=== PATIENT | male | born 1955 | race Caucasian/White ===

== ENCOUNTER → 2018-10-16 | Outpatient (CLI) | payer OTHER ==
--- NOTE | 2018-10-16 19:50 | Diagnostic Imaging Report ---
PROCEDURE: US Hepatic (Liver). TECHNIQUE: Multiple real-time grayscale images were obtained over the right upper quadrant in various projections. INDICATION: Elevated liver function test. COMPARISON: There are no prior studies available for comparison. FINDINGS: The liver does not appear to be enlarged. There is no focal mass involving the liver and the biliary tree is not dilated. Spectral color-flow imaging of the portal vein shows the vein is patent. There is normal direction of flow within the vein. The liver is somewhat more echogenic than usually seen. This does suggest fatty metamorphosis. Within the right kidney, there is a 3.7 x 5.5 cm hypoechoic mass. This has the appearance of a renal neoplasm. CT would be recommended for further evaluation. The right kidney is otherwise unremarkable. There is no evidence for cholelithiasis or acute cholecystitis and the common bile duct is not dilated. The pancreas and the proximal area were obscured by bowel gas. IMPRESSION: 1. There is no evidence for an acute abnormality of the liver and there is no sign of a hepatic mass. The echogenic appearance of the liver does suggest fatty metamorphosis, however. 2. There does appear to be a solid mass within the mid portion of the right kidney. This finding is worrisome for neoplasm. CT would be recommended for further evaluation. 3. There is no acute abnormality of the right upper quadrant noted otherwise. Dictated by: Dictated on workstation # [id number]
== END ==
LOC: RAD 08:25
PROVIDERS: ATTEND Nurse Practitioner Family
DX: R79.89 Other specified abnormal findings of blood chemistry (principal); R74.8 Abnormal levels of other serum enzymes
CPT/HCPCS: 76705

== ENCOUNTER → 2018-10-19 | Outpatient (CLI) | payer SELFPAY ==
[~2018-10-19] MED LIST: CATHETER FLUSH 10 ML SYR IV PRN; HOLD METFORMIN - RECEIVED CONTRAST 20 ML VIAL IV SCH; IOHEXOL 350 MG/ML 100 ML (OMNIPAQUE 350) VIAL IV ONE; NS 100 ML (IVPB) BAG IV ONE
--- NOTE | 2018-10-19 19:48 | Diagnostic Imaging Report ---
PROCEDURE: CT abdomen and pelvis with contrast. TECHNIQUE: Multiple contiguous axial images were obtained through the abdomen and pelvis after administration of intravenous contrast. Auto Exposure Controls were utilized during the CT exam to meet ALARA standards for radiation dose reduction. INDICATION: Mass in the right kidney. FINDINGS: Heterogeneously enhancing solid vascularized right renal mass measured 6.4 x 4.2 cm and is most conspicuous at its middle one third where there is cortical involvement as well as extension into the hilar sinus fat. This is suspicious for malignancy. The contralateral left kidney is normal in size, cortical thickness, and shows normal excretion of contrast media with no evidence for left renal mass. The renal veins and cava are patent bilaterally as are the renal arteries. The adrenals are negative. There is no perinephric or retroperitoneal lymphadenopathy. No mesenteric mass. The liver, spleen, gallbladder, bile ducts, and pancreas appear normal. There is no ascites, abscess, hematoma, or fluid collection. Prostate, seminal vesicles, and urinary bladder appear unremarkable. No suspicious lytic or sclerotic bone lesion. The lung bases are negative. IMPRESSION: 1. Solid vascularized right renal mass; carcinoma suspected. 2. However, no CT findings to suggest regional or distant metastases. Dictated by: Dictated on workstation # [id number]
== END ==
LOC: RAD 13:20
PROVIDERS: ATTEND Nurse Practitioner Family
DX: N28.89 Other specified disorders of kidney and ureter (principal)
CPT/HCPCS: 74177

== ENCOUNTER → 2018-11-05 | Outpatient (CLI) | payer OTHER ==
[~2018-11-05] VITALS: Ht 182.9 cm; Wt 99.8 kg
[~2018-11-05] MED LIST changes: -HOLD METFORMIN - RECEIVED CONTRAST 20 ML VIAL IV SCH; -IOHEXOL 350 MG/ML 100 ML (OMNIPAQUE 350) VIAL IV ONE; -NS 100 ML (IVPB) BAG IV ONE; +REGADENOSON 0.4 MG/5 ML SYR (LEXISCAN) IV ONE
== END ==
LOC: CARD 06:48
PROVIDERS: ATTEND Internal Medicine Cardiovascular Disease
DX: I25.10 Atherosclerotic heart disease of native coronary artery without angina pectoris (principal); I10 Essential (primary) hypertension; R06.02 Shortness of breath; R53.81 Other malaise; I08.1 Rheumatic disorders of both mitral and tricuspid valves
CPT/HCPCS: 93306

== ENCOUNTER → 2018-11-15 | Outpatient (CLI) | payer OTHER ==
[~2018-11-15] MED LIST changes: -CATHETER FLUSH 10 ML SYR IV PRN; +HOLD METFORMIN - RECEIVED CONTRAST 20 ML VIAL IV SCH; +IOHEXOL 350 MG/ML 100 ML (OMNIPAQUE 350) VIAL IV ONE; +NS 100 ML (IVPB) BAG IV ONE; -REGADENOSON 0.4 MG/5 ML SYR (LEXISCAN) IV ONE
--- NOTE | 2018-11-15 09:40 | Diagnostic Imaging Report ---
PROCEDURE: CT chest with contrast only. TECHNIQUE: Multiple contiguous axial images were obtained through the chest after administration of intravenous contrast. Auto Exposure Controls were utilized during the CT exam to meet ALARA standards for radiation dose reduction. INDICATION: Renal mass. COMPARISON: No prior CT chest studies are available for comparison. FINDINGS: No axillary lymphadenopathy is detected. No mediastinal or hilar lymphadenopathy is detected. No pericardial or pleural fluid is identified. Pulmonary parenchymal evaluation demonstrates central airways to be patent. Lungs are clear. No infiltrates, nodules or masses are seen. No osteoblastic or osteolytic lesions are seen. The abdomen again demonstrates a solid mass in the right kidney. IMPRESSION: 1. No evidence of thoracic lymphadenopathy or pulmonary metastatic disease. 2. Right renal mass. Dictated by: Dictated on workstation # [id number]
== END ==
LOC: RAD 08:28
PROVIDERS: ATTEND Nurse Practitioner Family
DX: N28.89 Other specified disorders of kidney and ureter (principal)
CPT/HCPCS: 71260

== ENCOUNTER → 2018-11-15 | Outpatient (CLI) | payer OTHER ==
[2018-11-15 14:21] VITALS: BP 148/96
--- NOTE | 2018-11-15 14:21 | Cardiology Stress Test Report ---
Stress Test Report Date of Procedure/Referring: Date of Procedure: Nov 15, 2018 PCP Imelda Villalobos MD Admitting Physician Center/[facility] Indications: shortness of breath, CAD, hypertension. Baseline Heart Rate: 68 Baseline Blood Pressure: Blood Pressure Systolic: 148 Blood Pressure Diastolic: 96 Baseline EKG: Baseline EKG: Sinus rhythm with occasional PVCs. Summary/Conclusion: Summary: In summary, the patient started exercising with a baseline heart rate, blood pressure and EKG mentioned above Patient was able to exercise for a total of 12 minutes on Mani protocol, 12.3 METs Maximum heart rate 159 BPM which is 99 percent of maximum predicted heart rate response. Maximum blood pressure 188/91 mmHg Stress EKG diagnostic ST depressions noted in inferior leads. ST elevation noted in lead aVR. Recovery EKG Return to baseline Conclusion: 1. excellent functional capacity. 2. abnormal exercise stress test, with ST depressions. No chest pain. nuclear stress test or coronary angiography is recommended. 3. No arrhythmia was noted Imelda VILLALOBOS MD Nov 15, 2018 14:21
== END ==
LOC: CARD 08:26
PROVIDERS: ATTEND Internal Medicine Interventional Cardiology
DX: I25.10 Atherosclerotic heart disease of native coronary artery without angina pectoris (principal); I10 Essential (primary) hypertension
CPT/HCPCS: 93017

== ENCOUNTER 2018-11-22 08:40 | Day surgery (SDC) | payer OTHER ==
[~2018-11-22] VITALS: Ht 182.9 cm; Wt 102.5 kg
[2018-11-22] VITALS (7 sets, daily range): BP systolic 124–144; BP diastolic 72–94
--- OUTSIDE RECORDS SUMMARY | 2018-11-22 08:45 | XMS REPORT ---
Author Author RIZWAN LYNN [facility] Address [address] [place] [address] Care Team Providers Care Linux Devops Engineer Name Role Phone RIZWAN LYNN Unavailable PROBLEMS Type Condition ICD9-CM Code [id number] Code Onset Dates Condition Status SNOMED Code Problem Hyperlipidemia LDL goal <100 E78.5 Active 89804653 Problem Essential hypertension I10 Active 80584609 ALLERGIES No Known Allergies ENCOUNTERS Encounter Location Date Diagnosis [facility] [address] [id number] [id number] September, Essential hypertension I10 and Hyperlipidemia LDL goal <100 E78.5 [facility] [address] [id number][place] [id number] Jan, Essential hypertension I10 and Hyperlipidemia LDL goal <100 E78.5 [facility] [address] [id number] [place] [id number] Dec, [facility] [address] [id number], [place] [id number] Oct, Essential hypertension I10 [facility] [address] [id number][place] [id number] Oct, Essential hypertension I10 [facility] [address] [id number][place] [id number] September, Essential hypertension I10 [facility] [address] [id number][place] [phone] September, IMMUNIZATIONS No Known Immunizations SOCIAL HISTORY Never Assessed REASON FOR VISIT CHM- 6 month f/u BP Candy DELGADO PLAN OF CARE Activity Details Follow Up 6 Months Reason:b/p VITAL SIGNS Height 73 in 2017-09-14 Weight 224.1 lbs 2017-09-14 Temperature 97.1 degrees Fahrenheit 2017-09-14 Heart Rate 68 bpm 2017-09-14 Respiratory Rate 16 2017-09-14 BMI 29.56 kg/m2 2017-09-14 Blood pressure systolic 132 mmHg 2017-09-14 Blood pressure diastolic 90 mmHg 2017-09-14 MEDICATIONS Medication Instructions Dosage Frequency Start Date End Date Duration Status Atorvastatin Calcium 10 mg Orally Once a day 1 tablet 24h Oct, Not-Taking Hydrochlorothiazide 25MG Orally Once a day 1 tablet in the morning 24h Active Aspirin 81 81 MG Orally Once a day 1 tablet 24h Active Metoprolol Tartrate 25MG Orally Twice a day 1 tablet with food 12h Active RESULTS No Results PROCEDURES Procedure Date Ordered Result Body Site ROUTINE VENIPUNCTURE 2017-09-14 N/A ASSAY OF FREE THYROXINE September 14, 2017 ASSAY THYROID STIM HORMONE September 14, 2017 COMPLETE CBC W/AUTO DIFF WBC September 14, 2017 COMPREHEN METABOLIC PANEL September 14, 2017 INSTRUCTIONS MEDICATIONS ADMINISTERED No Known Medications MEDICAL (GENERAL) HISTORY Type Description Date Medical History hypertension Medical History -2015 Surgical History cardiac stent x2 08/2015 Surgical History vasectomy Hospitalization History Surgery(s) only
--- OUTSIDE RECORDS SUMMARY | 2018-11-22 08:45 | XMS REPORT ---
Author Author RIZWAN LYNN [facility] Address [address] [place] [address] Care Team Providers Care Pin Game Machine Inspector Name Role Phone RIZWAN LYNN Unavailable PROBLEMS Type Condition ICD9-CM Code APQ93-PH Code Onset Dates Condition Status SNOMED Code Problem Hyperlipidemia LDL goal <100 E78.5 Active 29234942 Problem Essential hypertension I10 Active 33589378 ALLERGIES No Information SOCIAL HISTORY Never Assessed PLAN OF CARE VITAL SIGNS MEDICATIONS Medication Instructions Dosage Frequency Start Date End Date Duration Status Atorvastatin Calcium 10 mg Orally Once a day 1 tablet 24h Oct, Active RESULTS No Results PROCEDURES No Known procedures IMMUNIZATIONS No Known Immunizations MEDICAL (GENERAL) HISTORY Type Description Date Medical History hypertension Medical History [place]-2016 Surgical History cardiac stent x2 08/2015 Surgical History vasectomy Hospitalization History Surgery(s) only
--- OUTSIDE RECORDS SUMMARY | 2018-11-22 08:45 | XMS REPORT ---
Author Author RIZWAN LYNN [facility] Address [address] [place] [address] Care Team Providers Care Regional Ehs Manager Name Role Phone RIZWAN LYNN Unavailable PROBLEMS Type Condition ICD9-CM Code [id number] Code Onset Dates Condition Status SNOMED Code Problem Hyperlipidemia LDL goal <100 E78.5 Active 63590164 Problem Hyperlipidemia LDL goal <70 E78.5 Active 75410127 Problem Essential hypertension I10 Active 37207433 ALLERGIES No Information ENCOUNTERS Encounter Location Date Diagnosis [facility] [address] [id number][place] [id number] Jul, [facility] [address] [id number], [place] [phone] Jul, Essential hypertension I10 [facility] [address] [id number] [id number] Jul, [facility] [address] [id number][place] [id number] Jul, Essential hypertension I10 ; Dizziness R42 and Bilateral otitis media with effusion H65.93 [facility] [address] [id number], [place] [id number] Jul, Essential hypertension I10 and Hyperlipidemia LDL goal <70 E78.5 [facility] [address] [id number], [place] [id number] Jul, Bronchitis, acute J20.9 and Hyperlipidemia LDL goal <70 E78.5 [facility] [address] [id number], [place] [id number] September, Essential hypertension I10 and Hyperlipidemia LDL goal <100 E78.5 [facility] [address] [id number], [place] [id number] Jan, Essential hypertension I10 and Hyperlipidemia LDL goal <[address] [id number] [place] [phone] Dec, [address] [id number] [place] [phone] Oct, Essential hypertension I[address] [id number] [place] [phone] Oct, Essential hypertension I10 [address] [facility] [address] [id number] [place] [id number] September, Essential hypertension I10 [address] [facility] [address] [id number] [place] [phone] September, IMMUNIZATIONS No Known Immunizations SOCIAL HISTORY Never Assessed REASON FOR VISIT labs Braulio RUBACLAVA PLAN OF CARE Activity Details Follow Up prn Reason: VITAL SIGNS MEDICATIONS Unknown Medications RESULTS No Results PROCEDURES Procedure Date Ordered Result Body Site VENIPUNCT, ROUTINE* July 11, 2018 LIPID PANEL July 11, 2018 COMPLETE CBC W/AUTO DIFF WBC July 11, 2018 COMPREHEN METABOLIC PANEL July 11, 2018 ASSAY OF FREE THYROXINE July 11, 2018 ASSAY THYROID STIM HORMONE July 11, 2018 INSTRUCTIONS MEDICATIONS ADMINISTERED No Known Medications MEDICAL (GENERAL) HISTORY Type Description Date Medical History hypertension Medical History [place]-2016 Medical History hyperlipidemia Surgical History cardiac stent x2 08/2015 Surgical History vasectomy Hospitalization History Surgery(s) only
--- OUTSIDE RECORDS SUMMARY | 2018-11-22 08:45 | XMS REPORT ---
Author Author RIZWAN LYNN [facility] Address [address] [place] [address] Care Team Providers Care Dental Intern Name Role Phone RIZWAN LYNN Unavailable PROBLEMS Type Condition ICD9-CM Code [id number] Code Onset Dates Condition Status SNOMED Code Problem Hyperlipidemia LDL goal <100 E78.5 Active 70503712 Problem Essential hypertension I10 Active 59711448 ALLERGIES No Information ENCOUNTERS Encounter Location Date [facility] [address] [id number][place] [id number] September, [facility] [address] [facility] [address] [id number], [place] [phone] Jan, Essential hypertension I10 and Hyperlipidemia LDL goal <100 E78.5 [facility] [id number] [facility] [address] [id number], [place] [id number] Dec, [facility] [address] [facility] [address] [id number], [place] [id number] Oct, Essential hypertension I10 [facility] [address] [facility] [address] [id number], [place] [phone] Oct, Essential hypertension I10 [facility] [address] [facility] [address] [id number], [place] [phone] September, Essential hypertension I10 [facility] [address] [address] [id number], [place] [phone] September, IMMUNIZATIONS No Known Immunizations SOCIAL HISTORY Never Assessed REASON FOR VISIT refill PLAN OF CARE VITAL SIGNS MEDICATIONS Medication Instructions Dosage Frequency Start Date End Date Duration Status Metoprolol Tartrate 25 MG Orally Twice a day 1 tablet with food 12h 90 days Active Hydrochlorothiazide 25 MG Orally Once a day 1 tablet in the morning 24h 90 days Active RESULTS No Results PROCEDURES No Known procedures INSTRUCTIONS MEDICATIONS ADMINISTERED No Known Medications MEDICAL (GENERAL) HISTORY Type Description Date Medical History hypertension Medical History [place]-2015 Surgical History cardiac stent x2 08/2015 Surgical History vasectomy Hospitalization History Surgery(s) only
--- OUTSIDE RECORDS SUMMARY | 2018-11-22 08:45 | XMS REPORT ---
Author Author SHANE RIZWAN [facility] Address [address] [place] [address] Care Team Providers Care Wind Tunnel Mechanic Name Role Phone RIZWAN LYNN Unavailable PROBLEMS Type Condition ICD9-CM Code [id number] Code Onset Dates Condition Status SNOMED Code Problem Hyperlipidemia LDL goal <100 E78.5 Active 75397241 Problem Essential hypertension I10 Active 13810807 ALLERGIES No Information SOCIAL HISTORY Never Assessed PLAN OF CARE VITAL SIGNS MEDICATIONS No Known Medications RESULTS Name Result Date Reference Range TSH W/ FREE T4 2016-10-06 TSH 2.150 0.450-4.500 T4,Free(Direct) 1.02 0.82-1.77 CBC 2016-10-06 WBC 5.4 3.4-10.8 RBC 4.84 4.14-5.80 Hemoglobin 15.1 12.6-17.7 Hematocrit 44.4 37.5-51.0 MCV 92 79-97 MCH 31.2 26.6-33.0 MCHC 34.0 31.5-35.7 RDW 13.4 12.3-15.4 Platelets 149 150-379 Neutrophils 59 Lymphs 26 Monocytes 12 Eos 3 Basos 0 Immature Cells Neutrophils (Absolute) 3.2 1.4-7.0 Lymphs (Absolute) 1.4 0.7-3.1 Monocytes(Absolute) 0.6 0.1-0.9 Eos (Absolute) 0.1 0.0-0.4 Baso (Absolute) 0.0 0.0-0.2 Immature Granulocytes 0 Immature Grans (Abs) 0.0 0.0-0.1 NRBC Hematology Comments: LIPID PANEL 2016-10-06 Cholesterol, Total 236 100-199 Triglycerides 191 0-149 HDL Cholesterol 43 >39 VLDL Cholesterol Jacob 38 5-40 LDL Cholesterol Calc 155 0-99 Comment: CMP 2016-10-06 Glucose, Serum 88 65-99 BUN 12 6-24 Creatinine, Serum 1.14 0.76-1.27 eGFR If NonAfricn Am 70 >59 eGFR If Africn Am 81 >59 BUN/Creatinine Ratio 11 9-20 Sodium, Serum 141 134-144 Potassium, Serum 3.7 3.5-5.2 Chloride, Serum 98 96-106 Carbon Dioxide, Total 23 18-29 Calcium, Serum 9.1 8.7-10.2 Protein, Total, Serum 7.0 6.0-8.5 Albumin, Serum 4.2 3.5-5.5 Globulin, Total 2.8 1.5-4.5 A/G Ratio 1.5 1.2-2.2 Bilirubin, Total 0.6 0.0-1.2 Alkaline Phosphatase, S 100 39-117 AST (SGOT) 25 0-40 ALT (SGPT) 21 0-44 PROCEDURES Procedure Date Ordered Result Body Site ROUTINE VENIPUNCTURE 2016-10-06 N/A ASSAY THYROID STIM HORMONE October 06, 2016 COMPLETE CBC W/AUTO DIFF WBC October 06, 2016 ASSAY OF FREE THYROXINE October 06, 2016 COMPREHEN METABOLIC PANEL October 06, 2016 LIPID PANEL October 06, 2016 IMMUNIZATIONS No Known Immunizations MEDICAL (GENERAL) HISTORY Type Description Date Medical History hypertension Medical History -2015 Surgical History cardiac stent x2 08/2015 Surgical History vasectomy Hospitalization History Surgery(s) only
--- OUTSIDE RECORDS SUMMARY | 2018-11-22 08:45 | XMS REPORT ---
Author Author RIZWAN LYNN [facility] Address [address] [place] [address] Care Team Providers Care Shoe Clerk Name Role Phone RIZWAN LYNN Unavailable PROBLEMS Type Condition ICD9-CM Code [id number] Code Onset Dates Condition Status SNOMED Code Problem Hyperlipidemia LDL goal <100 E78.5 Active 06450948 Problem Essential hypertension I10 Active 95952924 ALLERGIES No Known Allergies SOCIAL HISTORY Never Assessed PLAN OF CARE Activity Details Follow Up 3 Months Reason:blood pressure VITAL SIGNS Height 73 in 2016-10-05 Weight 221.6 lbs 2016-10-05 Temperature 97.6 degrees Fahrenheit 2016-10-05 Heart Rate 55 bpm 2016-10-05 Respiratory Rate 18 2016-10-05 BMI 29.23 kg/m2 2016-10-05 Blood pressure systolic 124 mmHg 2016-10-05 Blood pressure diastolic 80 mmHg 2016-10-05 MEDICATIONS Medication Instructions Dosage Frequency Start Date End Date Duration Status Aspir-81 81 MG Orally Once a day 1 tablet 24h Dec, 90 days Active Hydrochlorothiazide 25 MG Orally Once a day 1 tablet in the morning 24h 90 days Active Metoprolol Tartrate 25 MG Orally Twice a day 1 tablet with food 12h 90 days Active RESULTS No Results PROCEDURES No Known procedures IMMUNIZATIONS No Known Immunizations MEDICAL (GENERAL) HISTORY Type Description Date Medical History hypertension Medical History [place]-2016 Surgical History cardiac stent x2 08/2015 Surgical History vasectomy Hospitalization History Surgery(s) only
--- OUTSIDE RECORDS SUMMARY | 2018-11-22 08:46 | XMS REPORT | Continuity of Care Document ---
Author Organization Unknown Address Unknown Allergies There is no data. Medications There is no data. Problems There is no data. Procedures There is no data. Results Test Result Range CBC - 09/14/17 17:09 WHITE BLOOD CELL COUNT 5.6 Thousand/uL 3.8-10.8 RED BLOOD CELL COUNT 4.61 Million/uL 4.20-5.80 HEMOGLOBIN 14.2 g/dL 13.2-17.1 HEMATOCRIT 41.4 % 38.5-50.0 MCV 89.8 fL 80.0-100.0 MCH 30.8 pg 27.0-33.0 MCHC 34.3 g/dL 32.0-36.0 RDW 12.4 % 11.0-15.0 PLATELET COUNT 166 Thousand/uL 140-400 MPV 10.2 fL 7.5-12.5 ABSOLUTE NEUTROPHILS 3254 cells/uL 3824-2687 ABSOLUTE LYMPHOCYTES 1585 cells/uL 850-3900 ABSOLUTE MONOCYTES 571 cells/uL 200-950 ABSOLUTE EOSINOPHILS 151 cells/uL 15-500 ABSOLUTE BASOPHILS 39 cells/uL 0-200 NEUTROPHILS 58.1 % NRG LYMPHOCYTES 28.3 % NRG MONOCYTES 10.2 % NRG EOSINOPHILS 2.7 % NRG BASOPHILS 0.7 % NRG CBC - 07/11/18 09:45 WHITE BLOOD CELL COUNT 4.1 Thousand/uL 3.8-10.8 RED BLOOD CELL COUNT 5.02 Million/uL 4.20-5.80 HEMOGLOBIN 15.7 g/dL 13.2-17.1 HEMATOCRIT 44.7 % 38.5-50.0 MCV 89.0 fL 80.0-100.0 MCH 31.3 pg 27.0-33.0 MCHC 35.1 g/dL 32.0-36.0 RDW 12.3 % 11.0-15.0 PLATELET COUNT 157 Thousand/uL 140-400 MPV 10.8 fL 7.5-12.5 ABSOLUTE NEUTROPHILS 2046 cells/uL 9139-9957 ABSOLUTE LYMPHOCYTES 1497 cells/uL 850-3900 ABSOLUTE MONOCYTES 439 cells/uL 200-950 ABSOLUTE EOSINOPHILS 98 cells/uL 15-500 ABSOLUTE BASOPHILS 21 cells/uL 0-200 NEUTROPHILS 49.9 % NRG LYMPHOCYTES 36.5 % NRG MONOCYTES 10.7 % NRG EOSINOPHILS 2.4 % NRG BASOPHILS 0.5 % NRG TEST AUTHORIZATION - 10/09/18 17:33 TEST NAME: HEPATITIS PANEL, GENERAL NRG TEST CODE: [id number] NRG CLIENT CONTACT: TONYA Dorantes NRG REPORT ALWAYS MESSAGE SIGNATURE NRG COMMENT NRG Encounters ACCT No. Visit Date/Time Discharge Status Pt. Type Provider Facility Loc./Unit Complaint [id number] 10/29/2018 12:40:00 10/29/2018 23:59:59 [facility] Outpatient RIZWAN LYNN APRN [facility] [id number] 10/09/2018 17:00:00 Document Registration [id number] 07/11/2018 10:00:00 Document Registration [id number] 09/14/2017 16:20:00 Document Registration
--- OUTSIDE RECORDS SUMMARY | 2018-11-22 08:46 | XMS REPORT ---
Author Author RIZWAN LYNN [facility] Address [address] [place] [address] Care Team Providers Care Sales Service Assistant Name Role Phone RIZWAN LYNN Unavailable PROBLEMS Type Condition ICD9-CM Code [id number] Code Onset Dates Condition Status SNOMED Code Problem Hyperlipidemia LDL goal <100 E78.5 Active 62991745 Problem Essential hypertension I10 Active 47443002 ALLERGIES No Known Allergies ENCOUNTERS Encounter Location Date Diagnosis [facility] [address] [id number] [id number] September, [facility] [address] [id number] [place] [id number] Jan, Essential hypertension I10 and Hyperlipidemia LDL goal <100 E78.5 [facility] [address] [facility] [address] [id number] [place] [id number] Dec, [facility] [address] [id number] [place] [id number] Oct, Essential hypertension I10 [facility] [address] [id number] [place] [id number] Oct, Essential hypertension I10 [facility] [address] [id number] [place] [id number] September, Essential hypertension I10 [facility] [address] [id number] [place] [id number] September, IMMUNIZATIONS No Known Immunizations SOCIAL HISTORY Never Assessed REASON FOR VISIT Blood Pressure Luis JACOBS PLAN OF CARE Activity Details Follow Up 6 Months Reason:b/p VITAL SIGNS Height 73 in 2017-02-02 Weight 216.1 lbs 2017-02-02 Temperature 97.0 degrees Fahrenheit 2017-02-02 Heart Rate 60 bpm 2017-02-02 Respiratory Rate 18 2017-02-02 Oximetry 98 % 2017-02-02 BMI 28.51 kg/m2 2017-02-02 Blood pressure systolic 132 mmHg 2017-02-02 Blood pressure diastolic 80 mmHg 2017-02-02 MEDICATIONS Medication Instructions Dosage Frequency Start Date [...]
--- OUTSIDE RECORDS SUMMARY | 2018-11-22 08:46 | XMS REPORT ---
Author Author [facility]IZWAN LYNN [facility] Address [address] [place] [address] Care Team Providers Care Dust Collector Ore Crushing Name Role Phone RIZWAN LYNN Unavailable PROBLEMS Type Condition ICD9-CM Code [id number] Code Onset Dates Condition Status SNOMED Code Problem Hyperlipidemia LDL goal <100 E78.5 Active 63671909 Problem Essential hypertension I10 Active 05143679 ALLERGIES No Known Allergies SOCIAL HISTORY Never Assessed PLAN OF CARE VITAL SIGNS MEDICATIONS Medication Instructions Dosage Frequency Start Date End Date Duration Status Metoprolol Tartrate 25 MG Orally Twice a day 1 tablet with food 12h Active Aspir-81 81 MG Orally Once a day 1 tablet 24h Active Hydrochlorothiazide 25 MG Orally Once a day 1 tablet in the morning 24h Active RESULTS No Results PROCEDURES No Known procedures IMMUNIZATIONS No Known Immunizations MEDICAL (GENERAL) HISTORY Type Description Date Medical History hypertension Medical History -2015 Surgical History cardiac stent x2 08/2015 Surgical History vasectomy Hospitalization History Surgery(s) only
[2018-11-22] MEDS ORDERED: NS IV 1000 ML 1,000 ML ONE (09:02)
[2018-11-22] MEDS ORDERED: LIDOCAINE 1% INJ 20 ML 20 ML VIAL ONE (09:02)
[2018-11-22] MEDS ORDERED: HEParin (CATH LAB) 2,000 ML IV ONE (09:02)
[2018-11-22] MEDS ORDERED: NS IV 1000 ML 1,000 ML IV SCH (09:09)
[2018-11-22 09:45] LABS: HEMOGLOBIN 14.3 G/DL (13.3-17.7)
[2018-11-22] MEDS ORDERED: PHEN-640 PO (09:58)
[2018-11-22] MEDS ORDERED: HYDR25TA4 PO (09:58)
[2018-11-22] MEDS ORDERED: POTA10CA43 PO (09:58)
[2018-11-22] MEDS ORDERED: HYDR-4226 PO (09:58)
[2018-11-22] MEDS ORDERED: METO-333 PO (09:58)
[2018-11-22] MEDS ORDERED: OMG1KC PO (09:58)
[2018-11-22] MEDS ORDERED: UBID50TA3 PO (09:58)
[2018-11-22] MEDS ORDERED: ASPI-586 PO (09:58)
[2018-11-22 10:05] LABS: PROTHROMBIN TIME PATIENT 14.1 SEC (12.2-14.7)
[2018-11-22 10:11] LABS: BILIRUBIN,TOTAL 1.3 MG/DL (0.1-1.0); CALCIUM 9.4 MG/DL (8.5-10.1); CREATININE SERUM 2.01 MG/DL (0.60-1.30); POTASSIUM 3.9 MMOL/L (3.6-5.0); TOTAL PROTEIN 7.7 GM/DL (6.4-8.2)
[2018-11-22] MEDS ORDERED: fentaNYL INJECTION 100 MCG/2 ML AMP ONE (10:17)
[2018-11-22] MEDS ORDERED: MIDAZOLAM 5 MG/5 ML (VERSED) VIAL ONE (10:17)
[2018-11-22] MEDS ORDERED: NITRO DRIP 25000 MCG/D5W 250 ML IV ONE (10:18)
[2018-11-22] MEDS ORDERED: VERAPAMIL 5 MG/2 ML (CALAN) VIAL IV ONE (10:18)
[2018-11-22] MEDS ORDERED: HEParin 1000 UNIT/ML (10ML VIAL) FOR BOLUS ONE (10:18)
[2018-11-22] MEDS ORDERED: TICAGRELOR 90 MG TABLET (BRILINTA) PO ONE (11:04)
[2018-11-22] MEDS ORDERED: MIDAZOLAM 2 MG/2 ML (VERSED) VIAL ONE (11:06)
--- NOTE | 2018-11-22 11:25 | Cardiac Procedure Note-CS/ASA ---
Pre-Procedure Note Pre-Op Procedure Note H&P Reviewed The H&P was reviewed, patient examined and no changes noted. Date H&P Reviewed: Nov 22, 2018 Time H&P Reviewed: 09:30 Conscious Sedation Pre-Proced Time 09:30 ASA Score 3 For ASA 3 and 4: Consider anesthesia and medical clearance. Also, for patients with a history of failed moderate sedation consider anesthesia. Airway Lungs Heart ASA score ASA 1: a normal healthy patient ASA 2: a patient with a mild systemic disease (mid diabetes, controlled hypertension, obesity ASA 3: a patient with a severe systemic disease that limits activity (angina, COPD, prior Myocardial infarction) ASA 4: a patient with an incapacitating disease that is a constant threat to life (CHF, renal failure) ASA 5: a moribund patient not expected to survive 24 hrs. (ruptured aneurysm) ASA 6: a declared brain- patient whose organs are being harvested. For emergent operations, add the letter E after the classification Mallampati Classification Grade 1 Sedation Plan Analgesia, Amnesia, Plan communicated to team members, Discussed options with patient/fam, Discussed risks with patient/fam The patient is an appropriate candidate to undergo the planned procedure, sedation, and anesthesia. The patient immediately re-assessed prior to indication. Imelda HERNANDEZ MD Nov 22, 2018 11:25
[2018-11-22] MEDS ORDERED: PATIENT MAY USE OWN MEDS, ALL PO SCH (11:30)
--- NOTE | 2018-11-22 11:41 | Coronary Angiography & PCI ---
Coronary Angiography & PCI DATE OF PROCEDURE: 11/22/18 INDICATION: preoperative cardiovascular risk assessment for kidney cancer surgery, abnormal nuclear stress test, previous history of PCI. PREOPERATIVE DIAGNOSIS: preoperative cardiovascular risk assessment for kidney cancer surgery, abnormal nuclear stress test, previous history of PCI. POSTOPERATIVE DIAGNOSIS: severe left circumflex artery stenosis treated with 1 bare metal stent. HISTORY: this is a 62-year-old gentleman who is a patient of Dr. Velez. He has previous history of PCI to the LAD with 2 stents 3 years ago. Unfortunately he has been diagnosed with renal carcinoma and requires surgery. Dr. Velez recommended an echocardiogram and a stress test. Echocardiogram showed normal LVEF. Stress test showed ST depressions. Therefore, the patient was scheduled for coronary angiography. PROCEDURES PERFORMED: 1.Coronary angiography. 2.Left heart catheterization. 3.PCI to the left circumflex artery with bare metal stent. COMPLICATIONS: None. SPECIMENS: None. ESTIMATED BLOOD LOSS: 10 mL ANESTHESIA: Conscious sedation ANTICOAGULATION: IV heparin CONTRAST: 40 mL. FLUOROSCOPY: 5.3 minutes. FLOUROSCOPY DOSE: 511 mgy. PROCEDURE DETAILS: The patient is a 62 male and was brought to the clinical lab assistant after informed consent was taken. All the risks and complications were explained in detail; this included the risk of bleeding, vascular damage, stroke, ME and even . The patient was draped and prepped in the usual sterile fashion. Access was gained in the right radial artery with a 6 Samoan sheath. Coronary angiography and left heart catheterization was performed with the Vinton catheter. FINDINGS: 1.Left main: patent. 2.LAD: mild proximal disease. Patent stents in the mid LAD. 3.Left circumflex artery: severe proximal/mid left circumflex artery stenosis with stenosis severity 80 percent. 4.RCA: mild distal disease. 5.Left heart catheterization: aortic pressure 98/67 mmHg LV pressure 110/7 mmHg. LVEDP 22 mmHg. No gradient across the aortic valve. LV gram not done due to chronic kidney disease. RECOMMENDATIONS: PCI to proximal left circumflex artery stenosis is recommended. INTERVENTION DETAILS: JL4 guide catheter, whisper extra-support guidewire, IV heparin for a nticoagulation. Brilinta 180 mg bolus given before PCI. ACT was 211 seconds. Further 2000 units of IV heparin was given. The lesion was crossed with the whisper wire and the tip of the wire was placed in the distal first OM artery. We then direct stented with a bare metal stent integrity 3.0 x 12 mm at 16 sandrine for 45 seconds. Excellent results with no residual stenosis and TATI-3 flow. Patient tolerated procedure well and did not have any complication. Radial band was placed. CONCLUSIONS: 1. patent stents in the LAD. 2. Severe proximal/mid left circumflex artery stenosis treated successfully with 1 bare metal stent. 3. Dual antiplatelet therapy for one month only, then proceed with surgery. 4. Observe overnight with IV fluids and kidney function evaluation in the morning. Roula Villalobos MD, FACP, FACC, [facility] Interventional Cardiology Imelda VILLALOBOS MD Nov 22, 2018 11:41
[2018-11-22] MEDS: NS IV 1000 ML 1,000 ML IV SCH ×2 (12:14→23:00)
--- NOTE | 2018-11-22 18:15 | NUR ---
PT REQUESTING "SOMETHING FOR BOWELS" PT REPORTS NO BM SINCE MONDAY. DR HERNANDEZ NOTIFIED AND NEW ORDERS RECEIVED. SEE ORDER HX
[2018-11-22] MEDS ORDERED: MAGNESIUM CITRATE 300 ML BTL PO NR (18:46)
[2018-11-22] MEDS ORDERED: TICAGRELOR 90 MG TABLET (BRILINTA) PO SCH (21:00)
[2018-11-23] VITALS: BP 154/79
[2018-11-23 04:00] VITALS: BP 165/94
[2018-11-23 04:10] LABS: HEMOGLOBIN 14.1 G/DL (13.3-17.7); MEAN PLATELET VOLUME 10.2 FL (7.4-10.4); WHITE BLOOD COUNT 7.4 10^3/uL (4.3-11.0)
[2018-11-23 04:28] LABS: BUN/CREATININE RATIO 12; CALCIUM 9.3 MG/DL (8.5-10.1); CARBON DIOXIDE 24 MMOL/L (21-32); CHLORIDE 102 MMOL/L (98-107); CREATININE SERUM 1.13 MG/DL (0.60-1.30); GFR ESTIMATED > 60; GLUCOSE 94 MG/DL (70-105); SODIUM 138 MMOL/L (135-145)
[2018-11-23] MEDS: NS IV 1000 ML 1,000 ML IV SCH (07:26)
[2018-11-23 07:30] VITALS: BP 156/91
[2018-11-23] MEDS ORDERED: TICA90TA PO ×2 (07:34→09:07)
[2018-11-23] MEDS ORDERED: ASPIRIN E.C. 81 MG (ECOTRIN) TAB PO SCH (09:00)
--- NOTE | 2018-11-23 09:04 | Cardiology Discharge Summary ---
Diagnosis/Chief Complaint Date of Admission 11/22/2018 Date of Discharge 11/23/2018 Admission Diagnosis Preoperative cardiovascular risk assessment, abnormal nuclear stress test. Final/Discharge Diagnosis Severe left circumflex artery stenosis treated successfully with a bare metal stent. Chief Complaint/HPI Chief Complaint/HPI this is a 62-year-old gentleman who is a patient of Dr. Velez. He has previous history of PCI to the LAD with 2 stents 3 years ago. Unfortunately he has been diagnosed with renal carcinoma and requires surgery. Dr. Velez recommended an echocardiogram and a stress test. Echocardiogram showed normal LVEF. Stress test showed ST depressions. Therefore, the patient was scheduled for coronary angiography. Discharge Summary Procedures Severe left circumflex artery stenosis treated successfully with a bare metal stent. Discharge Physical Examination Normal cardiovascular and respiratory examination. Hospital Course Was the Problem List Reviewed?: Yes Unremarkable. Pending Labs Laboratory Tests 11/23/18 03:17: White Blood Count 7.4, Red Blood Count 4.52, Hemoglobin 14.1, Hematocrit 42, Mean Corpuscular Volume 93, Mean Corpuscular Hemoglobin 31, Mean Corpuscular Hemoglobin Concent 34, Red Cell Distribution Width 13.0, Platelet Count 126, Mean Platelet Volume 10.2, Sodium Level 138, Potassium Level 4.0, Chloride Level 102, Carbon Dioxide Level 24, Anion Gap 12, Blood Urea Nitrogen 14, Creatinine 1.13, Estimat Glomerular Filtration Rate > 60, BUN/Creatinine Ratio 12, Glucose Level 94, Calcium Level 9.3 Discussion & Recommendations Discussion Discharge instructions were discussed at length with the patient. Compliance with Brilinta was emphasized. Patient will continue dual antiplatelet therapy w ith aspirin and Brilinta for 1 month. Renal cell carcinoma surgery in one month. Patient will be considered at intermediate risk for perioperative major adverse cardiac events undergoing a moderate risk noncardiac surgery in one month. Discharge took over 30 minutes to complete. Follow up appt.: Dr. Velez/M[facility] in 2-3 weeks. Dicharge Diet: Cardiac Diet Activity as Tolerated: Yes Home Medications Reviewed patient Home Medication Reconciliation performed by pharmacy medication reconciliations debug technician and/or nursing. Patients Allergies have been reviewed. Discharge Home Medications: Reviewed and agree with Discharge Medication list on patient's Discharge Instruction sheet Condition at discharge Stable. Instructions to patient/family Discussed at length with the patient and family. Imelda HERNANDEZ MD Nov 23, 2018 09:04
--- NOTE | 2018-11-23 09:05 | Discharge Inst-Post CATH ---
Discharge Inst-CATH/EP Post Cardiac Cath/EP D/C Inst Follow Up/Plan Follow up with Nicci Ruano NP or Dr Velez in two to three weeks. <b>CARDIAC CATH/EP PROCEDURE DISCHARGE INSTRUCTIONS</b> ACTIVITY * Go Home directly and rest. * Limit activity of the leg (or wrist if it was used) for 7 days including aerobics, swimming, jogging, bicycling, etc. * Restrict stair-climbing for 7 days if possible, if not, climb up with your non-cath leg, then bring together on the same step. * Avoid lifting, pushing, pulling or excessive movement of the affected extremity for 7 days. * Customary sexual activity may be resumed after 2 days-use caution not to use a position that strains or causes pain to the affected extremity. * No driving for 24 hours. * NO SMOKING. * Avoid straining for bowel movements for 7 days. * Gentle walking on level ground is allowed. * Returning to work will depend on the type of procedure and the results. Your doctor will discuss this with you. CALL YOUR DOCTOR FOR ANY OF THE FOLLOWING: *If bleeding from the puncture site occurs- Apply gentle pressure to site with clean cloth and call your doctor or EMS. * If a knot or lump forms under the skin, increases in size, or causes pain. * If bruising appears to be worsening or moving further down your leg instead of disappearing. * Temperature above 101 F. CARE OF YOUR GROIN INCISION; * Bruising or purple discoloration of the skin near the puncture site is common. * You may shower only, no bathtub bathing for 5 days. Be careful to avoid slipping as your leg may feel stiff. * If a closure device was used on your femoral artery, please see the attached guide regarding care of the device and your leg. * Leave dressing on FOR 24 hours. CARE OF YOUR WRIST INCISION; * Bruising or purple discoloration of the skin near the puncture site is common. * You may shower. * DO NOT submerge wrist. * Leave dressing on FOR 24 hours. Imelda HERNANDEZ MD Nov 23, 2018 09:05
[2018-11-23] MEDS ORDERED: ATOR80TA64 PO (09:08)
== END 2018-11-23 08:45 | disposition home or self-care (01) ==
LOC: CATH 08:40 → ICU 11:50 → CATH 11-23 08:45
PROVIDERS: ATTEND Internal Medicine Interventional Cardiology
DX: I25.10 Atherosclerotic heart disease of native coronary artery without angina pectoris (principal); Z79.82 Long term (current) use of aspirin; Z79.899 Other long term (current) drug therapy
CPT/HCPCS: 36415; 80048; 80053; 85027; 85347; 85610; 85730; 87081; 93458

== ENCOUNTER → 2019-05-10 | Outpatient (CLI) | payer SELFPAY ==
[~2019-05-10] MED LIST changes: +ASPI-586 PO; +ATOR80TA64 PO; -HOLD METFORMIN - RECEIVED CONTRAST 20 ML VIAL IV SCH; +HYDR-4226 PO; +HYDR25TA4 PO; -IOHEXOL 350 MG/ML 100 ML (OMNIPAQUE 350) VIAL IV ONE; +METO-333 PO; -NS 100 ML (IVPB) BAG IV ONE; +OMG1KC PO; +PHEN-640 PO; +POTA10CA43 PO; +TICA90TA PO; +UBID50TA3 PO
--- NOTE | 2019-05-10 16:42 | Diagnostic Imaging Report ---
PROCEDURE: CT chest, abdomen, and pelvis without contrast. TECHNIQUE: Multiple contiguous axial images were obtained through the chest, abdomen, and pelvis without the use of intravenous contrast. Auto Exposure Controls were utilized during the CT exam to meet ALARA standards for radiation dose reduction. INDICATION: History of kidney cancer. Status post previous right nephrectomy. COMPARISON: 11/15/2018. FINDINGS: CT CHEST: Cardiomediastinal structures show normal heart size. There is no large pericardial effusion. There is advanced calcified coronary atherosclerosis. Indwelling coronary stents are likely present, but obscured by motion artifact. Benign calcified right hilar lymph nodes are noted. Otherwise, no pathologically enlarged or morphologically abnormal adenopathy is seen within the mediastinum, juan c, nor axillae. Evaluation of the lung zurita demonstrates no focal consolidation, large effusion, nor pneumothorax. No suspicious pulmonary nodules or masses are identified. Osseous structures show no acute abnormalities. No lytic or blastic bony lesions are seen. CT ABDOMEN: Patient is status post previous right nephrectomy. No suspicious solid masses are seen within the right renal fossa on this noncontrast exam. There is no abnormal adenopathy. Left kidney has an unremarkable noncontrast CT appearance. Benign calcified hepatic and splenic granulomata are noted. Otherwise, the liver, spleen, pancreas, and adrenal glands have an unremarkable noncontrast CT appearance as well. There is no loculated fluid collection, free fluid, nor free air. No other abnormal mesenteric or retroperitoneal adenopathy is seen. Osseous structures show no lytic or blastic lesions. CT PELVIS: Urinary bladder is opacified. No calculi are seen within the urinary bladder. There is no loculated fluid collection, free fluid, nor free air. No abnormal lymph nodes are identified. Osseous structures show no acute abnormalities. IMPRESSION: 1. No evidence of recurrent or residual metastatic or malignant disease within the chest, abdomen, nor pelvis. 2. Expected postsurgical changes of previous right nephrectomy. Dictated by: Dictated on workstation # [id number]
== END ==
LOC: RAD 15:36
PROVIDERS: ATTEND Urology
DX: N28.89 Other specified disorders of kidney and ureter (principal); Z85.528 Personal history of other malignant neoplasm of kidney; Z90.5 Acquired absence of kidney
CPT/HCPCS: 71250; 74176